=== PATIENT | female | born 1935 ===

== ENCOUNTER 2018-11-06 11:50 | Emergency (ER) | payer OTHER, BC ==
[~2018-11-06] VITALS: Ht 167.6 cm; Wt 59.0 kg
[2018-11-06 12:06] VITALS: BP 174/88
--- NOTE | 2018-11-06 12:13 | NUR ---
PATIENT AMBULATED TO BED 9.
[2018-11-06] MEDS ORDERED: APIX2.5 PO (12:18)
[2018-11-06] MEDS ORDERED: VORT20TA PO (12:18)
--- NOTE | 2018-11-06 12:23 | NUR ---
83 Y FEMALE BIB SELF C/O SOB, NON PRODUCTIVE COUGH, CONGESTION, RUNNY NOSE, BILAT RIB PAIN EXACERBATED BY COUGHING. X 8 DAYS. DENIES CHEST PAIN. SOB EXACERBATED BY CONGESTION. LUNG SOUNDS CTAB. [place], RR 35. PAIN 6/10 ACHING. AA0X4, VS AT THIS TIME. BED IS DOWN, LOCKED, BED RAIL X 1, ERMD TO SEE PT. HX: PACEMAKER, CVA, LEGALLY BLIND, DEPRESSION RX: ELIQUIS, TRINTILLEX, DEPRESSION
--- NOTE | 2018-11-06 12:26 | NUR ---
DR HAHN AT BEDSIDE
[2018-11-06] MEDS ORDERED: NACL 0.9% 500 ML IV SCH (12:31)
[2018-11-06] MEDS ORDERED: IPRATROPIUM 0.02% 0.5 MG/2.5 ML NEBU INH ONE (12:35)
[2018-11-06] MEDS ORDERED: ALBUTEROL 0.083% 2.5 MG/3 ML NEBU INH ONE (12:35)
[2018-11-06] MEDS ORDERED: methylPREDNISolone SS 125 MG/2 ML VIAL IVP ONE (12:35)
--- NOTE | 2018-11-06 12:35 | NUR ---
FLU SWAB COLLECTED
--- NOTE | 2018-11-06 12:52 | NUR ---
LAB AT BEDSIDE
--- NOTE | 2018-11-06 13:05 | NUR ---
RT AT BEDSIDE
[2018-11-06 13:10] LABS: BASOPHILS % (AUTO) 0.2 % (0.0-2.0); EOSINOPHILS % (AUTO) 0.2 % (0.0-4.0); HEMOGLOBIN 13.9 g/dL (12.0-16.0); LYMPHOCYTES # (AUTO) 0.8 K/uL (2.5-16.5); MEAN CORPUSCULAR HEMOGLOBIN 31 pg (27-31); MEAN CORPUSCULAR HGB CONC 33 g/dL (33-37); MEAN CORPUSCULAR VOLUME 92.5 fL (80-94); MONOCYTES % (AUTO) 8.1 % (1.7-9.3); NEUTROPHILS # (AUTO) 10.1 K/uL (1.8-7.7); NEUTROPHILS % (AUTO) 84.5 % (42.2-75.2); PLATELET COUNT (AUTO) 247 K/uL (140-450); RED BLOOD CELL COUNT(AUTO) 4.54 MIL/uL (4.20-5.40); RED CELL DISTRIBUTION WIDTH 13.2 % (11.6-13.7); WHITE BLOOD COUNT (AUTO) 11.9 K/uL (4.8-10.8)
[2018-11-06 13:19] LABS: PROTHROMBIN TIME 10.2 secs (10.8-13.4)
[2018-11-06 13:33] LABS: ALBUMIN 3.5 g/dL (3.4-5.0); ASPARTATE AMINOTRANSFERASE 21 U/L (15-37); CARBON DIOXIDE 27.6 mmol/L (21-32); CREATININE 0.7 mg/dL (0.6-1.3); GLUCOSE 101 mg/dL (74-106); UREA NITROGEN, BLOOD 8 mg/dL (7-18)
[2018-11-06 13:46] LABS: ANION GAP 11.1 (8-16); CHLORIDE 100 mmol/L (98-107); POTASSIUM 3.7 mmol/L (3.5-5.1); SODIUM SERUM 135 mmol/L (136-145)
--- NOTE | 2018-11-06 13:55 | NUR ---
XRAY AT BEDSIDE
--- NOTE | 2018-11-06 13:59 | NUR ---
ER AT BEDSIDE
[2018-11-06 14:39] VITALS: BP 167/84
--- NOTE | 2018-11-06 14:39 | NUR ---
Patient discharged with v/s stable. Written and verbal after care instructions given and explained. Patient alert, oriented and verbalized understanding of instructions. Ambulatory with WALKER. All questions addressed prior to discharge. ID band removed. Patient advised to follow up with PMD. Rx of TESSALON PERLES, ALBUTEROL, PREDNISONE given. Patient educated on indication of medication including possible reaction and side effects. Opportunity to ask questions provided and answered.
[2018-11-06 16:52] LABS: APPEARANCE,URINE CLEAR (CLEAR); BILIRUBIN,URINE 1+ (NEGATIVE); BLOOD, URINE TRACE-L (NEGATIVE); COLOR,URINE YELLOW (YELLOW); LEUKOCYTE ESTERASE ,URINE TRACE (NEGATIVE); NITRITE, URINE NEGATIVE (NEGATIVE); UGLUCOSE NEGATIVE (NEGATIVE)
[2018-11-06 16:57] LABS: RBC,URINE 0-5 /HPF (0-5); WBC,URINE 0-5 /HPF (0-5)
== END 2018-11-06 14:39 | disposition home or self-care (01) ==
LOC: MED 11:50
DX: B34.9 Viral infection, unspecified (principal); J98.01 Acute bronchospasm; H54.8 Legal blindness, as defined in USA; Z86.73 Personal history of transient ischemic attack (TIA), and cerebral infarction without residual deficits; Z79.899 Other long term (current) drug therapy; Z91.041 Radiographic dye allergy status
CPT/HCPCS: 36415; 36600; 71045; 80053; 81001; 82803; 83605; 83880; 84484; 85025; 85610; 85730; 87040; 87086; 87804; 93005; 94640; 96374; 99284; J2930; J7030; J7613; J7644; Q0092

== ENCOUNTER 2022-11-21 17:26 | Inpatient (IN) | payer OTHER, BC ==
[~2022-11-21] VITALS: Ht 157.5 cm; Wt 61.2 kg
[~2022-11-21 17:26] MED LIST: APIX2.5 PO; VORT20TA PO
[2022-11-21 17:27] VITALS: BP 129/110
--- NOTE | 2022-11-21 17:42 | NUR ---
BIB MEDIC FOR EVALUATION OF N/V X20, NO PAIN
[2022-11-21] MEDS ORDERED: NACL 0.9% 1,000 ML IV ONE (18:05)
[2022-11-21 18:42] LABS: BASOPHILS % (AUTO) 0.3 % (0.0-2.0); HEMATOCRIT 44.1 % (36-48); HEMOGLOBIN 14.8 g/dL (12.0-16.0); LYMPHOCYTES # (AUTO) 0.5 K/uL (2.5-16.5); LYMPHOCYTES % (AUTO) 5.5 % (20.5-51.1); MEAN CORPUSCULAR HEMOGLOBIN 32 pg (27-31); MEAN CORPUSCULAR HGB CONC 34 g/dL (33-37); MONOCYTES # (AUTO) 0.5 K/uL (0.8-1.0); MONOCYTES % (AUTO) 5.5 % (1.7-9.3); NEUTROPHILS # (AUTO) 8.3 K/uL (1.8-7.7); NEUTROPHILS % (AUTO) 88.7 % (42.2-75.2); PLATELET COUNT (AUTO) 221 K/uL (140-450); RED BLOOD CELL COUNT(AUTO) 4.69 MIL/uL (4.20-5.40); RED CELL DISTRIBUTION WIDTH 13.4 % (11.6-13.7); WHITE BLOOD COUNT (AUTO) 9.3 K/uL (4.8-10.8)
[2022-11-21 18:59] LABS: ALBUMIN 3.7 g/dL (3.4-5.0); ANION GAP 10.1 (8-16); ASPARTATE AMINOTRANSFERASE 33 U/L (15-37); CARBON DIOXIDE 29.2 mmol/L (21-32); CHLORIDE 104 mmol/L (98-107); CREATININE 0.9 mg/dL (0.6-1.3); GLUCOSE 157 mg/dL (74-106); LIPASE 123 U/L (73-393); POTASSIUM 4.3 mmol/L (3.5-5.1); SODIUM SERUM 139 mmol/L (136-145); TOTAL BILIRUBIN 0.7 mg/dL (0.0-1.0); UREA NITROGEN, BLOOD 14 mg/dL (7-18)
--- NOTE | 2022-11-21 19:16 | NUR ---
AFIB RVR, PT ASYMPTOMATIC , DR CONSTANTINO MADE AWARE WELL , ARMANDO GONZALES.
--- NOTE | 2022-11-21 19:18 | NUR ---
REPORT GIVEN TO ARMANDO GONZALES
[2022-11-21] MEDS ORDERED: ASPIRIN 81 MG TAB.CHEW PO ONE (19:50)
--- NOTE | 2022-11-21 21:11 | NUR ---
Received troponin result of 740, Dr. Mullins contacted regarding result.
[2022-11-21] MEDS ORDERED: HEPARIN PER PHARMACY MC PRN (21:35)
[2022-11-21] MEDS ORDERED: hePARIN / DEXT 5% PREMIX 250 ML IV SCH ×2 (21:35→23:35)
--- NOTE | 2022-11-21 22:34 | NUR ---
Patient will be admitted to care of Dr. Mullins. Admited to Telemetry. Will go to room 106A. Belongings list completed. Report to Wali GONZALES.
[2022-11-21 22:50] VITALS: BP 132/75
--- NOTE | 2022-11-21 22:50 | NUR ---
RECEIVED REPORT FROM ER NURSE MICHELLE FOR CONTINUITY OF CARE. PATIENT IS A&O X4. PATIENT IS ON ROOM AIR. BREATHING IS NORMAL WITH SYMMETRICAL RISE AND FALL OF CHEST. PATIENT'S IV IS A 20G LAC, RUNNING NS TKO AT 5ML. PATIENT WAS ABLE TO WALK FROM GURNEY TO BED WITH ASSISTANCE, GAIT IS UNSTEADY; PATIENT STATES SHE USES A WALKER AT HOME. BED IS IN LOWEST POSITION, WHEELS LOCKED, CALL LIGHT IN PLACE. WILL CONTINUE TO OBSERVE PATIENT.
--- NOTE | 2022-11-21 23:05 | NUR ---
Pt report given to JANET WAYNE. Transfer of care at this time TO [facility], RM 106C
--- NOTE | 2022-11-22 03:30 | NUR ---
RECEIVED CRITICAL LAB OF TROPONIN 975.9 FROM CHARGE NURSE JOSE. NOTIFIED MD HENAO OF CRITICAL LAB AND THAT PATIENT WAS CURRENTLY ON HEPARIN DRIP AT 0320. PENDING RESPONSE. Addendum: 11/22/22 at 0425 by Wali Feliciano RN CRITICAL LAB IS ACTUALLY 958 NOT 975.9.
[2022-11-22 04:00] VITALS: BP 100/55
--- NOTE | 2022-11-22 05:00 | NUR ---
PATIENT HAS SLEPT THROUGHOUT THE NIGHT. BREATHING IS NORMAL WITH SYMMETRICAL RISE AND FALL OF CHEST. WILL CONTINUE TO OBSERVE PATIENT.
--- NOTE | 2022-11-22 07:30 | NUR ---
RECEIVED REPORT FROM DIRECTOR ORACLE RETAIL NURSE. POC DISCUSSED. PT CURRENTLY RESTING WITH CHEST RISING AND FALLING. NO ACUTE S/S OF DISTRESS. ALL SAFETY MEASURES IN PLACE. CALL LIGHT WITHIN REACH.
--- NOTE | 2022-11-22 07:45 | NUR ---
ENDORSED TO DAY SHIFT NURSE STEPHANI FOR CONTINUITY OF CARE. PATIENT IS STABLE.
[2022-11-22 08:00] VITALS: BP 117/54
--- NOTE | 2022-11-22 08:03 | NUR ---
STARCH TREATING ASSISTANT STATED HE SHAN BLOOD FOR THE TIMED BLOOD DRAW FOR HEPARIN DRIP
[2022-11-22 08:22] LABS: BASOPHILS % (AUTO) 0.5 % (0.0-2.0); EOSINOPHILS # (AUTO) 0.1 K/uL (0-0.4); EOSINOPHILS % (AUTO) 1.8 % (0.0-4.0); HEMATOCRIT 40.7 % (36-48); HEMOGLOBIN 13.5 g/dL (12.0-16.0); LYMPHOCYTES # (AUTO) 1.4 K/uL (2.5-16.5); LYMPHOCYTES % (AUTO) 17.7 % (20.5-51.1); MEAN CORPUSCULAR HEMOGLOBIN 31 pg (27-31); MEAN CORPUSCULAR HGB CONC 33 g/dL (33-37); MEAN CORPUSCULAR VOLUME 93.5 fL (80-94); MONOCYTES # (AUTO) 0.9 K/uL (0.8-1.0); MONOCYTES % (AUTO) 11.2 % (1.7-9.3); NEUTROPHILS # (AUTO) 5.4 K/uL (1.8-7.7); NEUTROPHILS % (AUTO) 68.8 % (42.2-75.2); PLATELET COUNT (AUTO) 206 K/uL (140-450); RED BLOOD CELL COUNT(AUTO) 4.35 MIL/uL (4.20-5.40); RED CELL DISTRIBUTION WIDTH 13.4 % (11.6-13.7); WHITE BLOOD COUNT (AUTO) 7.8 K/uL (4.8-10.8)
[2022-11-22 09:11] LABS: ANION GAP 12.3 (8-16); CARBON DIOXIDE 27.1 mmol/L (21-32); CHLORIDE 106 mmol/L (98-107); CREATININE 0.8 mg/dL (0.6-1.3); GLUCOSE 103 mg/dL (74-106); POTASSIUM 3.4 mmol/L (3.5-5.1); SODIUM SERUM 142 mmol/L (136-145); UREA NITROGEN, BLOOD 16 mg/dL (7-18)
--- NOTE | 2022-11-22 09:27 | NUR ---
MD MADE AWARE OF PT HAVING BLOODY NOSE, HEP DRIP PAUSED TILL FURTHER ORDERS.
[2022-11-22] MEDS: ONDANSETRON 4 MG/2 ML VIAL IVP PRN ×2 (09:39→17:31)
--- NOTE | 2022-11-22 11:05 | NUR ---
DR HENAO AT BEDSIDE DISCUSSING PLAN WITH PATIENT, ANSWERING ALL QUESTIONS
--- NOTE | 2022-11-22 11:10 | NUR ---
DR HENAO STATED AT BEDSIDE, DUE TO EPITAXI, HEPARIN WILL BE SWITCHED TO 5000 UNITS SUBQ BID. STATED SHE WILL PLACE ORDER.
[2022-11-22 12:00] VITALS: BP 127/66
[2022-11-22] MEDS ORDERED: HYDROcodone/APAP 7.5/325 MG 1 TAB PO PRN (12:50)
[2022-11-22] MEDS ORDERED: MAG SULF 2000 MG/WATER PREMIX 50 ML IV PRN (12:50)
[2022-11-22] MEDS ORDERED: POTASSIUM CHLORIDE 10 MEQ TABER PO PRN (12:50)
[2022-11-22] MEDS ORDERED: ACETAMINOPHEN 325 MG TAB PO PRN (12:50)
[2022-11-22] MEDS ORDERED: ONDANSETRON 4 MG/2 ML VIAL IVP PRN (12:50)
--- NOTE | 2022-11-22 12:55 | NUR ---
DC PLANNING ASSESSMENT COMPLETE PLEASE REFER TO ASSESSMENT FOR ADDITIONAL DETAILS PT REPORTS DC PLAN IS TO RETURN HOME AND REPORTS SHE MAY REQUIRE [employer] HOME WHEN CLEARED BY PHYSICIAN. Addendum: 11/22/22 at 1257 by Uday KENT Amended: Links added.
--- NOTE | 2022-11-22 13:03 | NUR ---
PAGEAndrei BORJA REGARDING CLARIFICATION FOR HEPARIN. STATED SHE WILL PLACE ORDER.
[2022-11-22] MEDS ORDERED: METOCLOPRAMIDE 10 MG/2 ML INJ VIAL IVP PRN (13:05)
[2022-11-22] MEDS ORDERED: LORazepam 0.5 MG TAB PO PRN (13:40)
[2022-11-22] MEDS: NACL 0.9% 1,000 ML IV SCH (13:40)
[2022-11-22 14:02] LABS: PHOSPHORUS 2.5 mg/dL (2.5-4.9)
[2022-11-22 14:11] LABS: PROTHROMBIN TIME 10.9 secs (10.8-13.4)
[2022-11-22 14:34] LABS: FREE T4 (FREE THYROXINE) 1.02 ng/dL (0.76-1.46)
[2022-11-22 14:50] LABS: THYROID STIMULATING HORMONE 2.96 uIU/mL (0.34-3.74)
--- NOTE | 2022-11-22 14:56 | NUR ---
MD NOTIFIED REGARDING TROP CRITICAL, TRENDING DOWN. PENDING NEW ORDERS.
[2022-11-22 16:00] VITALS: BP 119/59
[2022-11-22 16:28] LABS: BILIRUBIN,URINE NEGATIVE (NEGATIVE); BLOOD, URINE NEGATIVE (NEGATIVE); COLOR,URINE YELLOW (YELLOW); LEUKOCYTE ESTERASE ,URINE 1+ (NEGATIVE); NITRITE, URINE NEGATIVE (NEGATIVE); UGLUCOSE NEGATIVE (NEGATIVE)
[2022-11-22 16:51] LABS: APPEARANCE,URINE HAZY (CLEAR)
[2022-11-22 16:51] LABS: BARBITURATE, URINE NEGATIVE ng/ml (NEG <=200); BENZODIAZEPINE, URINE NEGATIVE ng/mL (NEG <=200); CANNABINOID, URINE NEGATIVE ng/mL (NEG <=50); COCAINE, URINE NEGATIVE ng/mL (NEG <=300); OPIATE, URINE NEGATIVE ng/mL (NEG <=2000); PHENCYCLIDINE SCREEN,URINE NEGATIVE ng/mL (NEG <=25)
--- NOTE | 2022-11-22 17:04 | NUR ---
PATIENT HAS BEEN SCREENED AND CATEGORIZED LOW NUTRITION RISK. PATIENT WILL BE SEEN WITHIN 7 DAYS OF ADMISSION. 11/28/22 REVIEWED BY FREDO BOYD RD
--- NOTE | 2022-11-22 19:20 | NUR ---
RECEIVED PT IN BED ASLEEP EASILY AROUSABLE BY VERBAL STIMULI. DENIES PAIN AT THIS TIME. NO ACUTE RESPIRATORY DISTRESS NOTED. SKIN WARM AND DRY TO TOUCH. SAFETY PRECAUTIONS IN PLACE, CALL LIGHT IN REACH.
[2022-11-22 20:00] VITALS: BP 116/63
[2022-11-22] MEDS: DOCUSATE SODIUM 100 MG GELCAP PO SCH (20:09)
[2022-11-22] MEDS ORDERED: MIRTAZAPINE 15 MG TAB PO SCH (21:00)
--- NOTE | 2022-11-22 21:45 | NUR ---
ASSISTED PT TO THE BATHROOM AND BACK TO BED, VOIDED WITHOUT DIFFICULTY. MADE COMFORTABLE IN BED. CALL LIGHT PLACED WITHIN REACH.
[2022-11-22 22:15] LABS: RBC,URINE NONE SEEN /HPF (0-5)
[2022-11-23] VITALS: BP 112/57
--- NOTE | 2022-11-23 | NUR ---
VITAL SIGNS TAKEN AND DOCUMENTED, WITHIN NORMAL LIMITS. DENIES PAIN. CALL LIGHT REMAINS WITHIN REACH.
--- NOTE | 2022-11-23 02:00 | NUR ---
ROUNDING DONE. PATIENT IS ASLEEP. BREATHING EVEN AND UNLABORED. CALL LIGHT WITHIN REACH.
[2022-11-23 04:00] VITALS: BP 125/77
--- NOTE | 2022-11-23 06:35 | NUR ---
PT IS ASLEEP. ALL NEEDS ATTENDED TO. NO S/SX OF PAIN NOR DISCOMFORT. SAFETY PRECAUTIONS IN PLACE, CALL LIGHT REMAINS WITHIN REACH.
[2022-11-23] MEDS: NACL 0.9% 1,000 ML IV SCH (06:42)
[2022-11-23 07:07] LABS: BASOPHILS % (AUTO) 0.8 % (0.0-2.0); EOSINOPHILS # (AUTO) 0.2 K/uL (0-0.4); EOSINOPHILS % (AUTO) 3.7 % (0.0-4.0); HEMATOCRIT 40.3 % (36-48); HEMOGLOBIN 13.5 g/dL (12.0-16.0); LYMPHOCYTES # (AUTO) 1.4 K/uL (2.5-16.5); LYMPHOCYTES % (AUTO) 29.3 % (20.5-51.1); MEAN CORPUSCULAR HEMOGLOBIN 32 pg (27-31); MEAN CORPUSCULAR HGB CONC 34 g/dL (33-37); MEAN CORPUSCULAR VOLUME 93.6 fL (80-94); MONOCYTES # (AUTO) 0.7 K/uL (0.8-1.0); MONOCYTES % (AUTO) 13.5 % (1.7-9.3); NEUTROPHILS # (AUTO) 2.5 K/uL (1.8-7.7); NEUTROPHILS % (AUTO) 52.7 % (42.2-75.2); PLATELET COUNT (AUTO) 185 K/uL (140-450); RED CELL DISTRIBUTION WIDTH 13.3 % (11.6-13.7); WHITE BLOOD COUNT (AUTO) 4.8 K/uL (4.8-10.8)
[2022-11-23 07:15] LABS: ANION GAP 9.6 (8-16); CARBON DIOXIDE 28.4 mmol/L (21-32); CHLORIDE 111 mmol/L (98-107); CREATININE 0.8 mg/dL (0.6-1.3); GLUCOSE 83 mg/dL (74-106); SODIUM SERUM 145 mmol/L (136-145); UREA NITROGEN, BLOOD 12 mg/dL (7-18)
[2022-11-23] MEDS ORDERED: METO25TE2 PO (07:24)
[2022-11-23] MEDS ORDERED: RIVA15TA1 PO (07:24)
[2022-11-23 08:00] VITALS: BP 139/64
[2022-11-23] MEDS ORDERED: PANTOPRAZOLE 40 MG INJ VIAL IVP SCH (09:00)
[2022-11-23] MEDS ORDERED: METOPROLOL SUCCINATE 50 MG TABER PO SCH (09:00)
[2022-11-23] MEDS ORDERED: LOSARTAN 25 MG TAB PO SCH (09:00)
[2022-11-23] MEDS ORDERED: VORTIOXETINE HYDROBROMIDE PO SCH (09:00)
[2022-11-23] MEDS ORDERED: RIVAROXABAN 10 MG TAB PO SCH (09:00)
[2022-11-23] MEDS: DOCUSATE SODIUM 100 MG GELCAP PO SCH (09:49)
[2022-11-23 11:01] VITALS: BP 139/64
--- NOTE | 2022-11-23 11:06 | NUR ---
DC PLANNING AN 87 Y.O. 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 FOR DISCHARGE TODAY.HOME HEALTH PT TO BE ARRANGED BY DC CMA OR LPN.PATIENT IS LEGALLY BLIND.GOING HOME BY UBER. Addendum: 11/24/22 at 0833 by HARIS ARECHIGA CM RECEIVED ORDER FOR HOME SAFETY ANGEL FAXED ALL PAPERWORK TO [employer] WHO IS ABLE TO ACCEPT PATIENT. [facility] WILL BE CONTACTING THE PATIENT DIRECTLY.
== END 2022-11-23 12:30 | disposition home health service (06) | DRG 282 ==
LOC: MED 17:26 → MTU 20:32
DX: I49.9 Cardiac arrhythmia, unspecified (principal); I21.A1 Myocardial infarction type 2; E87.6 Hypokalemia; Z20.822 Contact with and (suspected) exposure to COVID-19; I10 Essential (primary) hypertension; F41.9 Anxiety disorder, unspecified; I48.91 Unspecified atrial fibrillation; Z96.652 Presence of left artificial knee joint; Z96.611 Presence of right artificial shoulder joint; Z86.73 Personal history of transient ischemic attack (TIA), and cerebral infarction without residual deficits; Z95.0 Presence of cardiac pacemaker
CPT/HCPCS: 36415; 71045; 80048; 80053; 80305; 81001; 82140; 82150; 83036; 83605; 83690; 83735; 83880; 84100; 84439; 84443; 84484; 85025; 85610; 85730; 87040; 87081; 87086; 93005; 99291; J1644; J2405; J2765

== ENCOUNTER 2023-02-02 04:30 | Emergency (ER) | payer OTHER, BC ==
[~2023-02-02] VITALS: Ht 177.8 cm; Wt 65.8 kg
[~2023-02-02 04:30] MED LIST changes: -APIX2.5 PO; +METO25TE2 PO; +RIVA15TA1 PO
--- NOTE | 2023-02-02 04:39 | NUR ---
pt als to bed 4 ambulatory with assist
[2023-02-02 04:40] VITALS: BP 175/130; PULSE 142; RESP 18; TEMP 97.9; O2SAT 98
--- NOTE | 2023-02-02 04:52 | NUR ---
Dr. Chand examining patient.
--- NOTE | 2023-02-02 05:00 | NUR ---
CALL LIGHT WITHIN REACH
[2023-02-02] MEDS ORDERED: NACL 0.9% 1,000 ML IV ONE (05:05)
[2023-02-02 05:20] LABS: BASOPHILS % (AUTO) 0.4 % (0.0-2.0); EOSINOPHILS # (AUTO) 0.1 K/uL (0-0.4); EOSINOPHILS % (AUTO) 0.6 % (0.0-4.0); HEMATOCRIT 42.3 % (36-48); HEMOGLOBIN 14.2 g/dL (12.0-16.0); LYMPHOCYTES # (AUTO) 0.8 K/uL (2.5-16.5); LYMPHOCYTES % (AUTO) 9.2 % (20.5-51.1); MEAN CORPUSCULAR HEMOGLOBIN 31 pg (27-31); MEAN CORPUSCULAR HGB CONC 34 g/dL (33-37); MEAN CORPUSCULAR VOLUME 93.1 fL (80-94); MONOCYTES # (AUTO) 0.5 K/uL (0.8-1.0); MONOCYTES % (AUTO) 5.4 % (1.7-9.3); NEUTROPHILS # (AUTO) 7.2 K/uL (1.8-7.7); NEUTROPHILS % (AUTO) 84.4 % (42.2-75.2); PLATELET COUNT (AUTO) 225 K/uL (140-450); RED BLOOD CELL COUNT(AUTO) 4.54 MIL/uL (4.20-5.40); RED CELL DISTRIBUTION WIDTH 13.5 % (11.6-13.7); WHITE BLOOD COUNT (AUTO) 8.6 K/uL (4.8-10.8)
[2023-02-02] MEDS ORDERED: METOPROLOL 5 MG/5 ML VIAL IVP ONE (05:30)
[2023-02-02 05:34] LABS: ALBUMIN 3.6 g/dL (3.4-5.0); ANION GAP 13.4 (8-16); ASPARTATE AMINOTRANSFERASE 30 U/L (15-37); CARBON DIOXIDE 27.5 mmol/L (21-32); CHLORIDE 105 mmol/L (98-107); CREATININE 0.8 mg/dL (0.6-1.3); GLUCOSE 145 mg/dL (74-106); POTASSIUM 3.9 mmol/L (3.5-5.1); SODIUM SERUM 142 mmol/L (136-145); TOTAL BILIRUBIN 0.7 mg/dL (0.0-1.0); UREA NITROGEN, BLOOD 16 mg/dL (7-18)
--- NOTE | 2023-02-02 07:23 | NUR ---
Pt report given to RACHEL TRAORE. Transfer of care at this time.
--- NOTE | 2023-02-02 07:23 | NUR ---
REPORT RECEIVED FROM BRENDEN TRAORE. ASSUMED CARE AT THIS TIME
[2023-02-02] MEDS ORDERED: MECLIZINE 25 MG TAB PO ONE (08:10)
[2023-02-02] MEDS ORDERED: ONDANSETRON 4 MG/2 ML VIAL IVP ONE (08:10)
[2023-02-02 08:14] VITALS: O2SAT 95
--- NOTE | 2023-02-02 08:26 | NUR ---
pt taken to ct via dylan
[2023-02-02 08:29] LABS: APPEARANCE,URINE CLEAR (CLEAR); BILIRUBIN,URINE NEGATIVE (NEGATIVE); BLOOD, URINE NEGATIVE (NEGATIVE); COLOR,URINE YELLOW (YELLOW); LEUKOCYTE ESTERASE ,URINE NEGATIVE (NEGATIVE); NITRITE, URINE NEGATIVE (NEGATIVE); UGLUCOSE NEGATIVE (NEGATIVE)
--- NOTE | 2023-02-02 08:34 | NUR ---
pt brought back via dylan
[2023-02-02] MEDS ORDERED: ONDA-188 PO (10:12)
--- NOTE | 2023-02-02 10:14 | NUR ---
pt ambulated around room w/ steady gait using walker. denies dizziness at this time . MADE AWARE
--- NOTE | 2023-02-02 10:31 | NUR ---
IV removed, catheter intact and site benign. Applied folded 4x4 gauze and tape to stop bleeding.
--- NOTE | 2023-02-02 10:35 | NUR ---
pt updated on tx back home. eta 1300. pt provided w/ snack and juice.
[2023-02-02 11:42] VITALS: BP 138/80; PULSE 82; RESP 14; TEMP 98; O2SAT 99
--- NOTE | 2023-02-02 12:11 | NUR ---
pt provided w/ lunch. pt awake, repositioned and eating in bed.
== END 2023-02-02 13:19 | disposition home or self-care (01) ==
LOC: MED 04:30
DX: I48.91 Unspecified atrial fibrillation (principal); R42 Dizziness and giddiness; I10 Essential (primary) hypertension; Z86.73 Personal history of transient ischemic attack (TIA), and cerebral infarction without residual deficits; Z95.0 Presence of cardiac pacemaker; Z86.69 Personal history of other diseases of the nervous system and sense organs; Z79.899 Other long term (current) drug therapy; Z79.01 Long term (current) use of anticoagulants; Z88.8 Allergy status to other drugs, medicaments and biological substances
CPT/HCPCS: 36415; 70450; 71045; 80053; 81003; 83880; 84484; 85025; 85610; 85730; 93005; 96361; 96374; 99285; J2405; J7030; J8597; Q0092; J3490